=== PATIENT | female | born 1970 | race Caucasian/White ===

== ENCOUNTER → 2021-07-25 | Outpatient (CLI) | payer OTHER ==
[2021-07-26 15:09] LABS: HPV 16 Negative (Negative); HPV 18 Negative (Negative); HPV OTHER HR TYPES Positive (Negative)
== END ==
LOC: LAB 11:39 → LAB SHORT 11:39
PROVIDERS: Obstetrics & Gynecology
DX: Z12.4 Encounter for screening for malignant neoplasm of cervix (principal)
CPT/HCPCS: 87624; G0123

== ENCOUNTER → 2022-07-30 | Outpatient (CLI) | payer OTHER ==
[2022-08-01 15:10] LABS: HPV 16 Negative (Negative); HPV 18 Negative (Negative); HPV OTHER HR TYPES Positive (Negative)
== END | disposition home or self-care (01) ==
LOC: LAB SHORT 14:40 → LAB 14:40
PROVIDERS: Obstetrics & Gynecology
DX: Z12.4 Encounter for screening for malignant neoplasm of cervix (principal)
CPT/HCPCS: 87624; 87625; G0123

== ENCOUNTER 2022-11-24 06:15 | Day surgery (SDC) | payer OTHER ==
[~2022-11-24] VITALS: Ht 160 cm; Wt 89.4 kg
[2022-11-24] MEDS ORDERED: KELNOR 1-35 281 EACH PO (07:06)
[2022-11-24] MEDS ORDERED: MECL25 PO (07:06)
[2022-11-24] MEDS ORDERED: CLARITIN10 M4 PO (07:07)
--- NOTE | 2022-11-24 07:48 | NUR ---
[facility]48 [facility] BY DR HAQUE USING SONOSITE, TIMEOUT COMPLETED
--- NOTE | 2022-11-24 08:19 | NUR ---
11/24/22 0819 AILYN JOHNSON 1MG OF EPI INTO FIRST BAG OF LR FOR IRRIGATION DURING CASE.
--- NOTE | 2022-11-24 09:58 | NUR ---
11/24/22 0958 DENIA VASQUEZ NAUSEATED WITH MOVING FROM PACU TO SDU. PT TO REMAIN IN BED FOR NOW. HAS NOT VOMITED. REGLAN GIVEN IN PACU BY WINDY.
== END 2022-11-24 12:00 | disposition home or self-care (01) ==
LOC: ORSCSDS 06:15
PROVIDERS: Orthopaedic Surgery
PROC: 0LS34ZZ Reposition Right Upper Arm Tendon, Percutaneous Endoscopic Approach (ICD-10-PCS; principal; 2022-11-24 07:30)
PROC: 0RNJ4ZZ Release Right Shoulder Joint, Percutaneous Endoscopic Approach (ICD-10-PCS; principal; 2022-11-24 07:30)
DX: M75.121 Complete rotator cuff tear or rupture of right shoulder, not specified as traumatic (principal); M75.41 Impingement syndrome of right shoulder; Z79.899 Other long term (current) drug therapy; Z87.891 Personal history of nicotine dependence; E66.9 Obesity, unspecified; Z68.34 Body mass index [BMI] 34.0-34.9, adult
CPT/HCPCS: A9270; C1713; J0171; J0690; J1885; J2250; J2405; J2550; J2704; J2765; J3010; J7120

== ENCOUNTER 2024-05-03 08:49 | Day surgery (SDC) | payer OTHER ==
[~2024-05-03] VITALS: Ht 162.6 cm; Wt 92.2 kg
[~2024-05-03 08:49] MED LIST: CLARITIN10 M4 PO; KELNOR 1-35 281 EACH PO; Lactated Ringer's 1,000 ML IV ONE; MECL25 PO; propofoL 50 ML IV ONE
[2024-05-03] MEDS ORDERED: VITAMIN D350 MC3 (09:31)
[2024-05-03] MEDS ORDERED: VITAMIN B121000 MCG (09:32)
[2024-05-03] MEDS ORDERED: CENTRUM SILVER1 EAC2 (09:33)
[2024-05-03] MEDS ORDERED: Iron Chews15 MG (09:33)
[2024-05-03] MEDS ORDERED: Lactated Ringer's 1,000 ML IV ONE (09:43)
[2024-05-03 10:28] VITALS: BP 132/81
== END 2024-05-03 10:34 | disposition home or self-care (01) ==
LOC: ORSCSDS 08:49
PROVIDERS: Surgery
PROC: 0DJD8ZZ Inspection of Lower Intestinal Tract, Via Natural or Artificial Opening Endoscopic (ICD-10-PCS; principal; 2024-05-03 10:00)
DX: Z12.11 Encounter for screening for malignant neoplasm of colon (principal)
CPT/HCPCS: J2704; J7120